=== PATIENT | female | born 1950 | race Asian ===

== ENCOUNTER 2025-03-06 12:42 | Inpatient (IN) | payer OTHER ==
[~2025-03-06] VITALS: Ht 154.9 cm; Wt 59.9 kg
[2025-03-06] MEDS: IV NS 0.9% 1,000 ML BAG IV ONE (13:10)
[2025-03-06 13:20] LABS: PLATELET COUNT (AUTO) 384 K/uL (150-450); RED BLOOD CELL COUNT(AUTO) 3.85 MIL/uL (4.0-5.2); RED CELL DISTRIBUTION WIDTH 18.3 % (11.5-15.0); WHITE BLOOD COUNT (AUTO) 10.1 K/uL (4.3-11.0)
[2025-03-06 13:37] LABS: CALCIUM, SERUM 9.6 mg/dL (8.5-10.1); CREATININE 1.6 mg/dL (0.6-1.3); SODIUM SERUM 125 mmol/L (136-145); UREA NITROGEN, BLOOD 38 mg/dL (7-18)
[2025-03-06 13:43] LABS: ASPARTATE AMINOTRANSFERASE 25 U/L (15-37); TOTAL PROTEIN, SERUM 8.7 g/dL (6.4-8.2)
[2025-03-06 14:15] LABS: SITE, VBG VBG - N/A; VBG BASE EXCESS -3.5 mmol/L (-2.0-3.0); VBG HCO3 22.6 mmol/L (22.0-29.0); VBG MetHb 0.4 % (0.5-1.5); VBG OXYGEN SATURATION 37.2 % (60.0-85.0); VBG PCO2 45.8 mmHg (38.0-54.0); VBG PH 7.312 (7.320-7.430); VBG PO2 25.2 mmHg (23.0-48.0); VBG TOTAL HEMOGLOBIN 10.6 G/dL (12.0-16.0)
[2025-03-06 14:18] LABS: APPEARANCE,URINE CLEAR (CLEAR); BLOOD, URINE Small Ery/uL (NEGATIVE); LEUKOCYTE ESTERASE ,URINE Negative (NEGATIVE); NITRITE, URINE NEGATIVE (NEGATIVE); UGLUCOSE >=1000 mg/dL (NEGATIVE)
[2025-03-06] MEDS ORDERED: MULT-594 PO (15:17)
[2025-03-06] MEDS ORDERED: EMPA10TA PO (15:17)
[2025-03-06] MEDS ORDERED: METF-442 PO (15:17)
[2025-03-06] MEDS ORDERED: VITA1TAB20 PO (15:17)
[2025-03-06] MEDS ORDERED: INSU100I26 SQ (15:17)
[2025-03-06] MEDS ORDERED: VENL75TA4 PO (15:17)
[2025-03-06] MEDS ORDERED: VALS80TA2 PO (15:17)
[2025-03-06] MEDS ORDERED: INSU100I4 SQ (15:17)
[2025-03-06] MEDS ORDERED: CHOL200059 PO (15:17)
[2025-03-06] MEDS: IV LR 1000 ML 1,000 ML IV ONE (15:38)
[2025-03-06 15:45] LABS: SQUAMOUS EPITHELIAL CELL,UR Few /HPF (None Seen)
[2025-03-06 15:49] LABS: ADD URINE CULTURE YES
[2025-03-06 16:18] LABS: CALCIUM, SERUM 8.4 mg/dL (8.5-10.1); CREATININE 1.4 mg/dL (0.6-1.3); SODIUM SERUM 132.0 mmol/L (136-145); UREA NITROGEN, BLOOD 34.0 mg/dL (7-18)
[2025-03-06] MEDS ORDERED: INSULIN REGULAR, HUMAN 100 UNIT/ML 10 ML VIAL ONE (16:41)
[2025-03-06] MEDS: INSULIN ASPART/LISPRO 100 UNIT/ML CARTRIDGE SQ STA (16:46)
[2025-03-06] MEDS: INSULIN REGULAR, HUMAN 100 UNIT/ML 10 ML VIAL SQ ONE (16:53)
[2025-03-06] MEDS ORDERED: ONDANSETRON HCL/PF 4 MG/2 ML VIAL IVP PRN (17:30)
[2025-03-06] MEDS ORDERED: DEXTROSE 50%-WATER 50 ML DISP.SYRIN IV PRN (17:30)
[2025-03-06] MEDS ORDERED: MAGNESIUM HYDROXIDE 30 ML UDC PO PRN (17:30)
[2025-03-06] MEDS ORDERED: MAG HYDROX/AL HYDROX/SIMETH 30 ML UDC PO PRN (17:30)
[2025-03-06] MEDS ORDERED: Z GUARD REMEDY 4 OZ OINT TP PRN (17:30)
[2025-03-06] MEDS: IV NS 0.9% 1,000 ML IV SCH (18:07)
[2025-03-06] MEDS: BLOOD SUGAR DIAGNOSTIC 1 EACH STRIP VI SCH (18:28)
[2025-03-06] MEDS: INSULIN REGULAR, HUMAN 100 UNIT/ML 3 ML VIAL SQ PRN (18:29)
[2025-03-06 20:00] VITALS: BP 126/66; TEMP 97.9; O2SAT 100
[2025-03-07 06:34] LABS: PLATELET COUNT (AUTO) 371 K/uL (150-450); RED BLOOD CELL COUNT(AUTO) 4.09 MIL/uL (4.0-5.2); RED CELL DISTRIBUTION WIDTH 18.4 % (11.5-15.0); WHITE BLOOD COUNT (AUTO) 9.8 K/uL (4.3-11.0)
[2025-03-07 06:58] LABS: CALCIUM, SERUM 8.9 mg/dL (8.5-10.1); CREATININE 1.0 mg/dL (0.6-1.3); PHOSPHORUS 2.9 mg/dL (2.5-4.9); SODIUM SERUM 133.0 mmol/L (136-145); UREA NITROGEN, BLOOD 21.0 mg/dL (7-18)
[2025-03-07 08:00] VITALS: BP 156/60; TEMP 100.2; O2SAT 92
[2025-03-07] MEDS: MAGNESIUM OXIDE 400 MG TABLET PO ONE (10:12)
[2025-03-07] MEDS: ACETAMINOPHEN 325 MG TABLET PO PRN (10:13)
[2025-03-07] MEDS: CEFTRIAXONE 1 G in IV D5W 50 ML IV SCH (12:09)
[2025-03-07] MEDS: AZITHROMYCIN 500 MG in IV D5W 250 ML IV SCH (13:04)
[2025-03-07 16:22] VITALS: BP 123/60; TEMP 99; O2SAT 98
[2025-03-07 20:00] VITALS: BP 153/57; TEMP 99.3; O2SAT 100
[2025-03-07] MEDS: CLONIDINE HCL 0.1 MG TABLET PO PRN (21:18)
[2025-03-08 06:25] LABS: PLATELET COUNT (AUTO) 354 K/uL (150-450); RED BLOOD CELL COUNT(AUTO) 3.54 MIL/uL (4.0-5.2); RED CELL DISTRIBUTION WIDTH 18.0 % (11.5-15.0); WHITE BLOOD COUNT (AUTO) 9.9 K/uL (4.3-11.0)
[2025-03-08 06:56] LABS: ASPARTATE AMINOTRANSFERASE 19.0 U/L (15-37); CALCIUM, SERUM 8.8 mg/dL (8.5-10.1); CREATININE 1.1 mg/dL (0.6-1.3); PHOSPHORUS 2.8 mg/dL (2.5-4.9); SODIUM SERUM 127.0 mmol/L (136-145); TOTAL PROTEIN, SERUM 7.2 g/dL (6.4-8.2); UREA NITROGEN, BLOOD 27.0 mg/dL (7-18)
[2025-03-08 08:00] VITALS: BP 142/60; TEMP 99.3; O2SAT 93
[2025-03-08] MEDS: MAGNESIUM OXIDE 400 MG TABLET PO ONE (09:11)
[2025-03-08 12:26] LABS: CALCIUM, SERUM 8.9 mg/dL (8.5-10.1); CREATININE 1.0 mg/dL (0.6-1.3); PHOSPHORUS 2.7 mg/dL (2.5-4.9); SODIUM SERUM 134.0 mmol/L (136-145); UREA NITROGEN, BLOOD 24.0 mg/dL (7-18)
[2025-03-08 15:48] LABS: CALCIUM, SERUM 8.7 mg/dL (8.5-10.1); CREATININE 1.3 mg/dL (0.6-1.3); SODIUM SERUM 130.0 mmol/L (136-145); UREA NITROGEN, BLOOD 25.0 mg/dL (7-18)
[2025-03-08 20:00] VITALS: BP 158/59; TEMP 100.9; TEMP 99; O2SAT 99
[2025-03-08] MEDS: *INSULIN REGULAR(HUMULIN R)HUM 100 UNIT/ML VIAL SQ PRN (22:03)
[2025-03-09 06:01] LABS: CALCIUM, SERUM 9.1 mg/dL (8.5-10.1); CREATININE 1.1 mg/dL (0.6-1.3); PHOSPHORUS 4.0 mg/dL (2.5-4.9); SODIUM SERUM 133.0 mmol/L (136-145); UREA NITROGEN, BLOOD 25.0 mg/dL (7-18)
[2025-03-09 08:00] VITALS: BP 119/80; TEMP 98; O2SAT 98
[2025-03-09] MEDS ORDERED: AZIT250T PO (09:28)
[2025-03-09] MEDS: AZITHROMYCIN 250 MG TABLET PO SCH (10:33)
[2025-03-09] MEDS: MAGNESIUM OXIDE 400 MG TABLET PO ONE (11:27)
[2025-03-09 16:00] VITALS: BP 141/54; TEMP 98; O2SAT 97
[2025-03-09 20:00] VITALS: BP 160/57; TEMP 100; O2SAT 97
[2025-03-09 21:19] VITALS: BP 147/55; TEMP 99.1; O2SAT 99
[2025-03-10 07:53] LABS: CALCIUM, SERUM 9.1 mg/dL (8.5-10.1); CREATININE 1.2 mg/dL (0.6-1.3); PHOSPHORUS 3.6 mg/dL (2.5-4.9); SODIUM SERUM 131.0 mmol/L (136-145); UREA NITROGEN, BLOOD 29.0 mg/dL (7-18)
[2025-03-10 08:00] VITALS: BP 139/60; TEMP 98.2; O2SAT 96
[2025-03-10 16:00] VITALS: BP 129/76; TEMP 98.1; O2SAT 100
[2025-03-10] MEDS: METFORMIN 500 MG TABLET PO SCH (16:31)
[2025-03-10] MEDS: INSULIN REGULAR, HUMAN 100 UNIT/ML 10 ML VIAL SQ ONE (17:41)
[2025-03-10] MEDS: INSULIN GLARGINE, 100 UNIT/ML CARTRIDGE SQ SCH (23:23)
[2025-03-11 06:50] LABS: PLATELET COUNT (AUTO) 461 K/uL (150-450); RED BLOOD CELL COUNT(AUTO) 3.92 MIL/uL (4.0-5.2); RED CELL DISTRIBUTION WIDTH 18.3 % (11.5-15.0); WHITE BLOOD COUNT (AUTO) 10.4 K/uL (4.3-11.0)
[2025-03-11 07:12] LABS: CALCIUM, SERUM 9.4 mg/dL (8.5-10.1); CREATININE 1.1 mg/dL (0.6-1.3); SODIUM SERUM 132.0 mmol/L (136-145); UREA NITROGEN, BLOOD 30.0 mg/dL (7-18)
[2025-03-11 08:00] VITALS: BP 121/68; TEMP 97.7; O2SAT 94
[2025-03-11] MEDS: VALSARTAN 80 MG TABLET PO SCH (08:46)
[2025-03-11] MEDS: MULTIVITAMINS,THERAGRAN 1 UDTAB TABLET PO SCH (08:47)
[2025-03-11] MEDS: VENLAFAXINE 37.5 MG TABLET PO SCH (08:47)
[2025-03-11] MEDS: VITAMIN B COMP W-C 1 TAB TABLET PO SCH (08:47)
[2025-03-11] MEDS: INSULIN ASPART/LISPRO 100 UNIT/ML CARTRIDGE SQ SCH (08:49)
[2025-03-11] MEDS ORDERED: LEVO500T90 PO (08:56)
[2025-03-11] MEDS: EMPAGLIFLOZIN 10 MG TABLET PO SCH (09:16)
[2025-03-11 16:00] VITALS: BP 128/62; TEMP 97.7; O2SAT 98
== END 2025-03-11 18:37 | DRG 193 ==
LOC: ER 12:48 → MED 17:12
PROVIDERS: ADMIT Internal Medicine; ATTEND Internal Medicine
DX: J15.9 Unspecified bacterial pneumonia (principal); G93.41 Metabolic encephalopathy; N17.0 Acute kidney failure with tubular necrosis; E87.1 Hypo-osmolality and hyponatremia; I10 Essential (primary) hypertension; R29.6 Repeated falls; Z79.4 Long term (current) use of insulin; E83.42 Hypomagnesemia; E86.1 Hypovolemia; E11.65 Type 2 diabetes mellitus with hyperglycemia; F01.50 Vascular dementia, unspecified severity, without behavioral disturbance, psychotic disturbance, mood disturbance, and anxiety; E83.89 Other disorders of mineral metabolism; Z79.84 Long term (current) use of oral hypoglycemic drugs; Z20.822 Contact with and (suspected) exposure to COVID-19; R53.1 Weakness; J98.4 Other disorders of lung
CPT/HCPCS: 36415; 70450-TC; 71045-TC; 71250-TC; 73030-TC; 73564-TC; 80048-TC; 80053-TC; 80076-TC; 81001; 82010-TC; 82533; 82803-TC; 82962-TC; 83690-TC; 83735-TC; 83970; 84100-TC; 84443-TC; 84484-TC; 84550-TC; 85025-TC; 87040-TC; 87086-TC; 93307-TC; 97110-TC; 97116-TC; 97530-TC; 97535-TC; A4223; G0378; J0456; J0696; J1815; J7030; J7060; J7120